=== PATIENT | female | born 1990 | race Caucasian/White ===

== ENCOUNTER 2024-04-18 10:29 | Inpatient (IN) | payer OTHER ==
[~2024-04-18] VITALS: Ht 162.6 cm; Wt 86.2 kg
[2024-05-05] VITALS (7 sets, daily range): BP systolic 100–123; BP diastolic 56–80; O2SAT 99
[2024-05-05] MEDS ORDERED: FOLIC ACID1 MG PO (08:04)
[2024-05-05] MEDS ORDERED: PRENATAL TABLE1 EAC4 PO (08:04)
[2024-05-05 08:28] LABS: HEMATOCRIT 37.2 % (36.0-45.00); HEMOGLOBIN 12.6 g/dL (12.0-15.00); MEAN CELL VOLUME 93.2 fL (80.00-100.00); MEAN CORPUSCULAR HEMOGLOBIN 31.6 pg (27.00-32.0); MEAN CORPUSCULAR HGB CONC 33.9 g/dl (32.0-36.0); PLATELET COUNT 200 K/uL (150-450); RED BLOOD COUNT 3.99 M/uL (4.00-6.00); RED CELL DISTRIBUTION WIDTH 13.9 % (11.5-14.5)
[2024-05-05] MEDS ORDERED: OXYTOCIN 500 ML IV SCH (08:30)
[2024-05-05 08:36] LABS: PH,URINE 5.5 (5.0-8.0); URINE APPEARANCE Clear; URINE BILIRRUBIN Negative (NEGATIVE); URINE BLOOD Negative; URINE COLOR Yellow; URINE GLUCOSE Negative (NEGATIVE); URINE KETONE Negative (NEGATIVE); URINE LEUKOCYTE Trace; URINE NITRATE Negative; URINE PROTEIN Negative (NEGATIVE); URINE UROBILINOGEN 0.2 E.U./dl
[2024-05-05 08:39] LABS: URINE BACTERIA 1035.5 uL (0.0-1933); URINE EPITHELIAL CELLS 40.1 uL (0.0-38.8); URINE WBC 33.5 uL (0.0-23.2)
[2024-05-05 08:40] LABS: URINE CAST 0.15 uL (0.0-1.40); URINE RBC 1.5 uL (0.0-20.8)
[2024-05-05 08:50] LABS: INR 0.95; PARTIAL THROMBOPLASTIN TIME 27.8 SECONDS (22.0-34.0); PROTHROMBIN TIME 10.4 SECONDS (9.0-11.5)
[2024-05-05 09:02] LABS: ALBUMIN 2.9 gm/dL (3.4-5.0); BILIRUBIN TOTAL 0.26 mg/dL (0.3-1.2); CALCIUM 8.7 mg/dL (8.5-10.1); CREATININE SERUM 0.58 mg/dL (0.55-1.02); GFR 119.72; POTASSIUM 3.9 mEq/L (3.5-5.1); TOTAL PROTEIN 6.9 gm/dL (6.4-8.2)
[2024-05-05] MEDS ORDERED: OXYTOCIN 1,000 ML IV ONE (09:30)
[2024-05-05] MEDS ORDERED: ERYTHROMYCIN BASE OPHT 1GM EACH TUBE OP ONE (09:30)
[2024-05-05] MEDS ORDERED: CHLORHEXIDINE GLUCONATE 120 ML BOTTLE TOP ONE (09:30)
[2024-05-05] MEDS ORDERED: IBUprofen 600 MG TABLET PO PRN (10:30)
[2024-05-06] VITALS: BP 108/71
[2024-05-06 08:00] VITALS: BP 125/79
[2024-05-06 16:00] VITALS: BP 115/79
[2024-05-07 01:26] VITALS: BP 100/64
[2024-05-07 07:57] VITALS: BP 102/67
== END 2024-05-07 16:39 | disposition home or self-care (01) | DRG 807 ==
LOC: OB/GYN 05-05 07:57 → LDR 05-05 07:57 → OB/GYN 05-05 09:35
PROVIDERS: ADMIT Obstetrics & Gynecology; ATTEND Obstetrics & Gynecology
PROC: 10E0XZZ Delivery of Products of Conception, External Approach (ICD-10-PCS; principal; 2024-05-05)
PROC: 4A1HXCZ Monitoring of Products of Conception, Cardiac Rate, External Approach (ICD-10-PCS; 2024-05-05)
DX: O80 Encounter for full-term uncomplicated delivery (principal); Z37.0 Single live birth; Z3A.39 39 weeks gestation of pregnancy; Z20.822 Contact with and (suspected) exposure to COVID-19